=== PATIENT | female | born 1955 | race Hispanic/Latino ===

== ENCOUNTER 2021-08-23 11:03 | Emergency (ER) | payer OTHER, BC, MEDICARE ==
[2021-08-23] MEDS ORDERED: Acetaminophen 325 MG TAB ONE (12:14)
== END 2021-08-23 12:31 | disposition home or self-care (01) ==
LOC: NAV ERS 11:03
DX: S16.1XXA Strain of muscle, fascia and tendon at neck level, initial encounter (principal); S39.012A Strain of muscle, fascia and tendon of lower back, initial encounter; V43.53XA Car driver injured in collision with pick-up truck in traffic accident, initial encounter
CPT/HCPCS: 72070; 72100; 72125